=== PATIENT | female | born 1940 | race Two or more races ===

== ENCOUNTER → 2017-11-05 | Outpatient (CLI) | payer OTHER ==
[~2017-11-05] MED LIST: ADULT LOW DOSE81 M1; GLUCOPHAGE XR500 MG PO; HYZAAR 100/25 T1 TAB PO; LEVOXYL175 MCG PO; NORVASC10 MG; SEPTRA DS TABLE1 TAB PO; ZOCOR20 MG; [UNRECOGNIZED DRUG - OTHER]
== END | disposition home or self-care (01) ==
LOC: NUCLEAR 10-29 14:00
DX: M81.0 Age-related osteoporosis without current pathological fracture (principal)

== ENCOUNTER → 2017-11-15 | Outpatient (CLI) | payer OTHER | END | disposition home or self-care (01) | LOC: MAMO-SONO 11-13 10:15 | DX: Z12.31 Encounter for screening mammogram for malignant neoplasm of breast (principal); Z87.898 Personal history of other specified conditions; N62 Hypertrophy of breast ==

== ENCOUNTER 2018-02-04 09:11 | Outpatient (CLI) | payer OTHER | END 2018-02-04 17:00 | disposition home or self-care (01) | LOC: RAD 09:11 | DX: N20.0 Calculus of kidney (principal) ==

== ENCOUNTER 2018-03-27 11:21 | Outpatient (CLI) | payer OTHER | END 2018-03-27 11:30 | disposition home or self-care (01) | LOC: RAD 11:21 | DX: M12.812 Other specific arthropathies, not elsewhere classified, left shoulder (principal); M19.012 Primary osteoarthritis, left shoulder ==

== ENCOUNTER 2018-07-13 14:56 | Emergency (ER) | payer OTHER ==
[~2018-07-13] VITALS: Ht 154.9 cm; Wt 102.5 kg
[2018-07-13] MEDS ORDERED: JANUVIA25 MG (15:09)
[2018-07-13] MEDS ORDERED: AMARIL (15:11)
[2018-07-13] MEDS ORDERED: SKELAXIN800 MG PO (18:33)
[2018-07-13] MEDS ORDERED: CELEBREX100 MG PO (18:33)
[2018-07-13] MEDS ORDERED: DRAMAMINE LESS25 MG PO (18:33)
== END 2018-07-13 18:37 | disposition home or self-care (01) ==
LOC: ER 14:56
DX: M54.41 Lumbago with sciatica, right side (principal)

== ENCOUNTER 2018-10-02 13:03 | Outpatient (CLI) | payer OTHER ==
[~2018-10-02 13:03] MED LIST changes: +AMARIL; +CELEBREX100 MG PO; +DRAMAMINE LESS25 MG PO; +JANUVIA25 MG; +SKELAXIN800 MG PO
== END 2018-10-02 13:06 | disposition home or self-care (01) ==
LOC: RAD 13:03
DX: M12.9 Arthropathy, unspecified (principal); M19.90 Unspecified osteoarthritis, unspecified site; M46.47 Discitis, unspecified, lumbosacral region; J44.9 Chronic obstructive pulmonary disease, unspecified

== ENCOUNTER 2019-02-17 11:06 | Outpatient (CLI) | payer OTHER | END 2019-02-17 11:09 | disposition home or self-care (01) | LOC: MAMO-SONO 11:06 | DX: Z12.31 Encounter for screening mammogram for malignant neoplasm of breast (principal); N63.10 Unspecified lump in the right breast, unspecified quadrant; N63.20 Unspecified lump in the left breast, unspecified quadrant ==

== ENCOUNTER 2019-03-31 13:37 | Emergency (ER) | payer OTHER ==
[~2019-03-31] VITALS: Ht 154.9 cm; Wt 106.6 kg
[2019-03-31] MEDS ORDERED: JANUMET XR 1001 EACH (14:09)
[2019-03-31] MEDS ORDERED: XOPENEX CO1.25 MG/0. IH (18:58)
[2019-03-31] MEDS ORDERED: IRON1TAB4 PO (18:58)
[2019-03-31] MEDS ORDERED: IPRATROPIU0.2 MG/1 M IH (18:58)
[2019-03-31] MEDS ORDERED: BUDESONIDE0.5 MG/2 M IH (18:58)
== END 2019-03-31 19:51 ==
LOC: ER 13:37
DX: J98.01 Acute bronchospasm (principal); D50.8 Other iron deficiency anemias

== ENCOUNTER → 2019-04-03 10:18 | Outpatient (CLI) | payer OTHER ==
[~2019-04-03 10:18] MED LIST changes: +BUDESONIDE0.5 MG/2 M IH; +IPRATROPIU0.2 MG/1 M IH; +IRON1TAB4 PO; +JANUMET XR 1001 EACH; +XOPENEX CO1.25 MG/0. IH
== END | disposition home or self-care (01) ==
LOC: LAB 10:18
DX: J06.9 Acute upper respiratory infection, unspecified (principal); R06.2 Wheezing

== ENCOUNTER 2020-04-16 10:06 | Outpatient (CLI) | payer OTHER | END 2020-04-16 10:18 | disposition home or self-care (01) | LOC: RAD 10:06 | PROVIDERS: ATTEND Internal Medicine Nephrology | DX: N20.0 Calculus of kidney (principal); J44.9 Chronic obstructive pulmonary disease, unspecified; N18.2 Chronic kidney disease, stage 2 (mild); N21.9 Calculus of lower urinary tract, unspecified ==

== ENCOUNTER 2020-04-21 10:31 | Outpatient (CLI) | payer OTHER | END 2020-04-21 10:37 | disposition home or self-care (01) | LOC: MRI 10:31 | PROVIDERS: ATTEND Internal Medicine Cardiovascular Disease | DX: M54.5 Low back pain (principal) | CPT/HCPCS: 72148 ==

== ENCOUNTER 2020-06-11 09:26 | Outpatient (CLI) | payer OTHER | END 2020-06-11 16:44 | disposition home or self-care (01) | LOC: MRI 09:26 | PROVIDERS: ATTEND Physical Medicine & Rehabilitation | DX: M47.894 Other spondylosis, thoracic region (principal); G95.29 Other cord compression; M54.2 Cervicalgia; M54.12 Radiculopathy, cervical region; M54.6 Pain in thoracic spine; M54.5 Low back pain; R26.2 Difficulty in walking, not elsewhere classified; G99.2 Myelopathy in diseases classified elsewhere | CPT/HCPCS: 72141; 72146 ==

== ENCOUNTER 2021-01-07 12:59 | Outpatient (CLI) | payer OTHER | END 2021-01-07 13:00 | disposition home or self-care (01) | LOC: NUCLEAR 12:59 | PROVIDERS: ATTEND Internal Medicine Cardiovascular Disease | DX: M81.0 Age-related osteoporosis without current pathological fracture (principal); E55.9 Vitamin D deficiency, unspecified ==

== ENCOUNTER 2021-02-02 13:14 | Outpatient (CLI) | payer OTHER | END 2021-02-03 15:04 | disposition home or self-care (01) | LOC: MAMO-SONO 13:14 | PROVIDERS: ATTEND Internal Medicine Cardiovascular Disease | DX: N64.59 Other signs and symptoms in breast (principal); Z12.31 Encounter for screening mammogram for malignant neoplasm of breast; Z87.898 Personal history of other specified conditions ==

== ENCOUNTER 2021-05-31 10:59 | Outpatient (CLI) | payer OTHER | END 2021-05-31 11:08 | disposition home or self-care (01) | LOC: RAD 10:59 | PROVIDERS: ATTEND Internal Medicine Rheumatology | DX: M15.0 Primary generalized (osteo)arthritis (principal) ==

== ENCOUNTER 2022-06-16 14:15 | Emergency (ER) | payer OTHER ==
[~2022-06-16] VITALS: Ht 154.9 cm; Wt 97.1 kg
[2022-06-16] MEDS ORDERED: NORVASC2.5 M1 PO (14:29)
[2022-06-16] MEDS ORDERED: SINGULAIR4 M1 PO (14:29)
[2022-06-16] MEDS ORDERED: OSEL75CA PO (16:55)
[2022-06-16] MEDS ORDERED: MEDROLPACK PO (16:55)
[2022-06-16] MEDS ORDERED: METAXALONE400 MG PO (16:56)
== END 2022-06-16 17:00 | disposition home or self-care (01) ==
LOC: ER 14:15
DX: M54.16 Radiculopathy, lumbar region (principal); M54.9 Dorsalgia, unspecified; I10 Essential (primary) hypertension; E11.9 Type 2 diabetes mellitus without complications

== ENCOUNTER 2022-08-25 10:35 | Outpatient (CLI) | payer OTHER ==
[~2022-08-25 10:35] MED LIST changes: +MEDROLPACK PO; +METAXALONE400 MG PO; +NORVASC2.5 M1 PO; +OSEL75CA PO; +SINGULAIR4 M1 PO
== END 2022-08-25 10:44 | disposition home or self-care (01) ==
LOC: MRI 10:35
PROVIDERS: ATTEND Physical Medicine & Rehabilitation
DX: M54.50 Low back pain, unspecified (principal); M54.16 Radiculopathy, lumbar region
CPT/HCPCS: 72148

== ENCOUNTER 2022-09-06 11:22 | Outpatient (CLI) | payer OTHER | END 2022-09-06 11:24 | disposition home or self-care (01) | LOC: MAMO-SONO 11:22 | PROVIDERS: ATTEND Internal Medicine Cardiovascular Disease | DX: Z12.31 Encounter for screening mammogram for malignant neoplasm of breast (principal); N63.11 Unspecified lump in the right breast, upper outer quadrant ==

== ENCOUNTER 2022-11-16 10:14 | Outpatient (CLI) | payer OTHER | END 2022-11-16 10:16 | disposition home or self-care (01) | LOC: NUCLEAR 10:14 | PROVIDERS: ATTEND Internal Medicine Cardiovascular Disease | DX: I87.2 Venous insufficiency (chronic) (peripheral) (principal) ==

== ENCOUNTER 2023-10-16 11:28 | Outpatient (CLI) | payer OTHER | END 2023-10-16 11:32 | disposition home or self-care (01) | LOC: RAD 11:28 | PROVIDERS: ATTEND Orthopaedic Surgery Sports Medicine | DX: M25.561 Pain in right knee (principal); M25.562 Pain in left knee ==

== ENCOUNTER 2023-10-29 15:15 | Outpatient (CLI) | payer OTHER | END 2023-10-29 15:16 | disposition home or self-care (01) | LOC: MAMO-SONO 15:15 | PROVIDERS: ATTEND Internal Medicine | DX: N64.4 Mastodynia (principal); R92.8 Other abnormal and inconclusive findings on diagnostic imaging of breast; Z12.31 Encounter for screening mammogram for malignant neoplasm of breast ==

== ENCOUNTER 2025-02-11 16:38 | Inpatient (IN) | payer OTHER ==
[~2025-02-11] VITALS: Ht 170.2 cm; Wt 95.3 kg
[2025-02-11] MEDS ORDERED: LOSARTAN-HCTZ1 EAC2 PO (16:47)
[2025-02-11] MEDS ORDERED: ELIQUIS5 MG PO (16:48)
[2025-02-11] MEDS ORDERED: JANUMET XR 50-1 EACH PO (16:48)
--- NOTE | 2025-02-11 16:49 | NUR ---
SE RECIBE FEMINA ALERTA Y ORIENTADA X3 CUAL REFIERE PRESENTA DOLOR EN PIERNA IZQ QUE COMIENZA EN LA CADERA CON TERI PUNZADA Y CORRE HASTA L PIE. SE JONATHAN S/V Y SE UBICA.
[2025-02-11] MEDS ORDERED: KETOROLAC TROMETHAMINE 30 MG VIAL IM STA (18:34)
[2025-02-11] MEDS ORDERED: KETOROLAC TROMETHAMINE 30 MG VIAL ONE (19:10)
--- NOTE | 2025-02-11 19:38 | NUR ---
SE LE ORIENTA A PACIENTE SOBRE LA ORDEN MEDICA, REFIERE ENTENDER LAS MISMAS. SE CANALIZA Y SE LE COLOCA UN H/L, SE LE JONATHAN LAS MUETRAS Y SE LE ADMINISTRA EL MEDICAMENTO CHRIS LA ORDEN MEDICA.
[2025-02-11 20:05] LABS: INR 1.0
[2025-02-11 20:06] LABS: BASO % 0.6 % (0.1-1.2); EOS # 0.16 (0.04-0.54); EOS % 1.2 % (0.7-7.0); LYMPH # 2.52 (1.18-3.74); LYMPH % 18.4 % (19.3-53.1); MEAN PLATELET VOLUME 10.40 fl (9.4-12.4); MONO # 1.16 (0.24-0.82); MONO % 8.5 % (4.7-12.5); NEUT # 9.71 (1.56-6.13); NEUT % 71.1 % (34.0-71.1); RED CELL DISTRIBUTION WIDTH 16.5 % (11.6-14.4)
[2025-02-11 20:09] LABS: ERYTHROCYTE SEDIMENTATION RATE 108 mm/hr (0-30)
[2025-02-11 20:12] LABS: D DIMER 1.14 MG/L
[2025-02-11 21:08] LABS: ALT/SGPT 19.0 U/L (12-78); AST/SGOT 21.0 U/L (15-37); BILIRUBIN TOTAL 0.21 mg/dL (0.3-1.2); BUN CREA RATIO 20.0 (7.0-25.0); CREATININE SERUM 0.93 mg/dL (0.55-1.02); GFR 57.16; GLOBULINA 3.9 G/DL (2.4-3.5); GLUCOSE FASTING 185.0 mg/dL (65-100); OSMOLALITY SERUM 285.0 MOSM/KG (275-295)
[2025-02-11] MEDS ORDERED: INSULIN LISPRO 1,000 UNIT/10 ML UNITS SUBCUTANEO PRN (23:45)
[2025-02-11] MEDS ORDERED: 0.9 % SODIUM CHLORIDE 1,000 ML IV SCH (23:45)
[2025-02-11] MEDS ORDERED: ACETAMINOPHEN 500 MG GEL..CAP PO PRN (23:45)
[2025-02-11] MEDS ORDERED: DEXTROSE 50 % IN WATER 0.5 G/ML DISP.SYRIN IV PRN (23:45)
[2025-02-12 04:43] VITALS: BP 110/71
[2025-02-12] MEDS ORDERED: APIXABAN 5 MG TABLET PO SCH (05:00)
[2025-02-12] MEDS ORDERED: LEVOTHYROXINE SODIUM 150 MCG TABLET PO SCH (06:00)
[2025-02-12 07:02] LABS: URINE BACTERIA 6151.1 uL (0.0-1933); URINE CAST 3.66 uL (0.0-1.40); URINE EPITHELIAL CELLS 51.9 uL (0.0-38.8); URINE RBC 10.4 uL (0.0-20.8); URINE WBC 240.6 uL (0.0-23.2)
[2025-02-12 07:07] LABS: URINE APPEARANCE Cloudy; URINE BILIRRUBIN Negative (NEGATIVE); URINE BLOOD Negative; URINE COLOR Dark Yellow; URINE GLUCOSE Negative (NEGATIVE); URINE KETONE Trace (NEGATIVE); URINE LEUKOCYTE Moderate; URINE NITRATE Negative; URINE PROTEIN Trace (NEGATIVE); URINE UROBILINOGEN 1.0 E.U./dl
[2025-02-12] MEDS ORDERED: MEPERIDINE HCL/PF 25 MG/ML VIAL IV PRN (08:00)
[2025-02-12] MEDS ORDERED: LOSARTAN/HYDROCHLOROTHIAZIDE 1 TAB TABLET PO SCH (09:00)
[2025-02-12] MEDS ORDERED: METOPROLOL SUCCINATE 50 MG TAB.SR.24H PO SCH (09:00)
[2025-02-12 09:27] VITALS: BP 143/66; O2SAT 99
[2025-02-12] MEDS ORDERED: CEFTRIAXONE SODIUM 2,000 MG in 0.9 % SODIUM CHLORIDE 100 ML IV NR (11:00)
[2025-02-12] MEDS ORDERED: SIMVASTATIN 20 MG TABLET PO SCH (17:00)
[2025-02-12 18:51] VITALS: BP 175/85
[2025-02-13 00:56] VITALS: BP 122/59; O2SAT 97
[2025-02-13 08:00] LABS: ALT/SGPT 17.0 U/L (12-78); AST/SGOT 27.0 U/L (15-37); BILIRUBIN TOTAL 0.38 mg/dL (0.3-1.2); BUN CREA RATIO 18.0 (7.0-25.0); CREATININE SERUM 0.65 mg/dL (0.55-1.02); GFR 86.42; GLOBULINA 2.9 G/DL (2.4-3.5); GLUCOSE FASTING 131.0 mg/dL (65-100); OSMOLALITY SERUM 283.0 MOSM/KG (275-295)
[2025-02-13 08:05] LABS: BASO % 0.5 % (0.1-1.2); EOS # 0.21 (0.04-0.54); EOS % 2.1 % (0.7-7.0); LYMPH # 1.49 (1.18-3.74); LYMPH % 15.1 % (19.3-53.1); MEAN PLATELET VOLUME 10.90 fl (9.4-12.4); MONO # 0.90 (0.24-0.82); MONO % 9.1 % (4.7-12.5); NEUT # 7.22 (1.56-6.13); NEUT % 72.9 % (34.0-71.1); RED CELL DISTRIBUTION WIDTH 16.6 % (11.6-14.4)
[2025-02-13] MEDS ORDERED: CEFTRIAXONE SODIUM 2,000 MG VIAL ONE (08:07)
[2025-02-13] MEDS ORDERED: CEFTRIAXONE SODIUM 2,000 MG in 0.9 % SODIUM CHLORIDE 100 ML IV SCH (09:00)
[2025-02-13 09:55] VITALS: BP 127/70; O2SAT 98
== END 2025-02-13 14:19 | disposition home or self-care (01) | DRG 593 ==
LOC: ER 17:13 → MEDI 23:41
PROVIDERS: General Practice; Internal Medicine Infectious Disease; ADMIT Internal Medicine; ATTEND Internal Medicine
PROC: B54DZZZ Ultrasonography of Bilateral Lower Extremity Veins (ICD-10-PCS; principal; 2025-02-11)
DX: L97.929 Non-pressure chronic ulcer of unspecified part of left lower leg with unspecified severity (principal); L03.115 Cellulitis of right lower limb; L03.116 Cellulitis of left lower limb; I10 Essential (primary) hypertension; E11.9 Type 2 diabetes mellitus without complications; Z79.4 Long term (current) use of insulin